=== PATIENT | male | born 1995 | race Caucasian/White ===

== ENCOUNTER 2017-02-21 16:12 | Emergency (ER) | payer SELFPAY ==
[~2017-02-21] VITALS: Ht 185.4 cm; Wt 82.9 kg
[2017-02-21 16:20] VITALS: BP 139/83
[2017-02-21] MEDS ORDERED: LIDOCAINE 1%, 10ML INFIL ONE (18:00)
[2017-02-21] MEDS ORDERED: LIDOCAINE 1%, 20ML ONE (18:40)
[2017-02-21] MEDS ORDERED: GENTIAN VIOLET SOLN 2% 60 ML TP ONE (19:00)
== END 2017-02-21 19:50 | disposition home or self-care (01) ==
LOC: ED 19:00
DX: L60.0 Ingrowing nail (principal); L03.031 Cellulitis of right toe
CPT/HCPCS: 11730; 99284

== ENCOUNTER 2017-02-28 01:05 | Emergency (ER) | payer SELFPAY ==
[~2017-02-28] VITALS: Ht 182.9 cm; Wt 85.4 kg
[2017-02-28 01:06] VITALS: BP 144/81
== END 2017-02-28 01:59 | disposition home or self-care (01) ==
LOC: ED 01:59
DX: L60.0 Ingrowing nail (principal)
CPT/HCPCS: 99283

== ENCOUNTER 2017-09-06 18:38 | Emergency (ER) | payer BC ==
[~2017-09-06] VITALS: Ht 182.9 cm; Wt 80.9 kg
[2017-09-06 18:40] VITALS: BP 149/104
== END 2017-09-06 19:17 | disposition home or self-care (01) ==
LOC: ED 19:15
DX: J00 Acute nasopharyngitis [common cold] (principal); B97.89 Other viral agents as the cause of diseases classified elsewhere
CPT/HCPCS: 99283

== ENCOUNTER 2017-12-06 22:03 | Emergency (ER) | payer BC, OTHER ==
[~2017-12-06] VITALS: Ht 182.9 cm; Wt 81.6 kg
[2017-12-06 22:05] VITALS: BP 147/83
[2017-12-06] MEDS ORDERED: DIPH,PERTUSS(ACELL),TET VAC/PF 0.5 ML IM-VACC ONE ×2 (22:55→23:00)
[2017-12-06] MEDS ORDERED: LIDOCAINE 1%, 20ML SQ ONE (23:00)
== END 2017-12-06 23:59 | disposition home or self-care (01) ==
LOC: ED 23:20
DX: S61.217A Laceration without foreign body of left little finger without damage to nail, initial encounter (principal); Z87.891 Personal history of nicotine dependence; W45.8XXA Other foreign body or object entering through skin, initial encounter; Y93.89 Activity, other specified; Y92.009 Unspecified place in unspecified non-institutional (private) residence as the place of occurrence of the external cause; Y99.9 Unspecified external cause status
CPT/HCPCS: 12041; 90471; 90715; 99284

== ENCOUNTER 2018-10-22 00:41 | Emergency (ER) | payer OTHER ==
[~2018-10-22] VITALS: Ht 182.9 cm; Wt 84.6 kg
[2018-10-22 00:43] VITALS: BP 151/88
== END 2018-10-22 02:27 | disposition home or self-care (01) ==
LOC: ED 01:33
DX: S16.1XXA Strain of muscle, fascia and tendon at neck level, initial encounter (principal); V49.49XA Driver injured in collision with other motor vehicles in traffic accident, initial encounter; Y93.89 Activity, other specified; Y92.89 Other specified places as the place of occurrence of the external cause; Y99.8 Other external cause status
CPT/HCPCS: 72020; 99283